=== PATIENT | female | born 1960 | race Caucasian/White ===

== ENCOUNTER 2018-01-04 01:30 | Emergency (ER) | payer OTHER ==
[~2018-01-04] VITALS: Ht 167.6 cm; Wt 100.0 kg
[2018-01-04 01:44] VITALS: BP 119/77; PULSE 74; RESP 18; TEMP 98.5; O2SAT 97
[2018-01-04] MEDS ORDERED: MOBI7.5T PO (01:51)
[2018-01-04] MEDS ORDERED: OFFICE MEDICATION PO (01:51)
[2018-01-04] MEDS ORDERED: ONDANSETRON ODT 4 MG TAB PO ONE (02:00)
--- NOTE | 2018-01-04 02:37 | PD ---
HPI Chief Complaint: Alcohol/Drug Intoxication Time Seen by Provider: 01:50 Travel History International Travel<30 days: No Contact w/Intl Traveler<30days: No Traveled to known affect area: No History of Present Illness HPI Patient states that she does not drink heavily on a regular basis. And today she had 5 jAEGERMEISTER shots. On apparently she was picked up by police because of local disturbance. Patient was brought to the emergency department for clearance. Patient herself denies any major complaints, except she does feel a little nauseous. Patient denies any aggravating factors or alleviating factors. No known drug allergy Past medical history consistent with hypothyroidism, hernia repair, right tibial fracture left ACL and carpal tunnel surgery. FOR[facility]LY [facility] Past Medical History Thyroid Disease: Yes Past Surgical History Abdominal Surgery: Yes (HERNIA REPAIR) Social History Alcohol Use: Yes (SOCIAL) Tobacco Use: No Substance Use: No Allergies-Medications (Allergen,Severity, Reaction): Coded Allergies: No Known Allergies (Unverified , 01/04/18) Reported Meds & Prescriptions Reported Meds & Active Scripts Active Reported Mobic (Meloxicam) 7.5 Mg Tab Unknown Dose PO DAILY Office Medication (Miscellaneous Medication) Misc 1 Tab PO DAILY Review of Systems General / Constitutional: No: Fever Eyes: No: Visual changes HENT: No: Headaches Cardiovascular: No: Chest Pain or Discomfort Respiratory: No: Shortness of Breath Gastrointestinal: Positive: Nausea, Vomiting (After drinking multiple shots of alcohol/liquor) Genitourinary: No: Dysuria Musculoskeletal: No: Pain Skin: No Rash Neurologic: No: Weakness Psychiatric: No: Depression Endocrine: No: Polydipsia Hematologic/Lymphatic: No: Easy Bruising Physical Exam Narrative GENERAL: SKIN: Warm and dry. HEAD: Atraumatic. Normocephalic. EYES: Pupils equal and round. No scleral icterus. No injection or drainage. ENT: No nasal bleeding or discharge. Mucous membranes pink and moist. NECK: Trachea midline. No JVD. CARDIOVASCULAR: Regular rate and rhythm. RESPIRATORY: No accessory muscle use. Clear to auscultation. Breath sounds equal bilaterally. GASTROINTESTINAL: Abdomen soft, non-tender, nondistended. MUSCULOSKELETAL: Extremities without clubbing, cyanosis, or edema. No obvious deformities. NEUROLOGICAL: Awake and alert. No obvious cranial nerve deficits. Motor grossly within normal limits. Five out of 5 muscle strength in the arms and legs. Normal speech. PSYCHIATRIC: Appropriate mood and affect; insight and judgment normal. Data Data Last Documented VS Vital Signs Date Time Temp Pulse Resp B/P (MAP) Pulse Ox O2 Delivery O2 Flow Rate FiO2 01/04/18 01:44 98.5 74 18 119/77 (91) 97 Orders Orders Blood Glucose (01/04/18 01:54) Ondansetron Odt (Zofran Odt) (01/04/18 02:00) MDM Medical Decision Making Medical Screen Exam Complete: Yes Emergency Medical Condition: Yes Medical Record Reviewed: Yes Differential Diagnosis Hypoglycemia versus EtOH intoxication Narrative Course After some observation, her vital signs are stable, glucose was 105, after receiving Zofran ODT patient stopped having any further emesis. And patient was able to tolerate p.o. prior to discharge.... Patient is released to police custody. Diagnosis Primary Impression: Alcohol intoxication with nausea Patient Instructions: Alcohol Intoxication (DC), General Instructions Disposition: [address] LAW ENFORCEMNT Condition: Stable Gary Blevins MD Jan 04, 2018 02:37
== END 2018-01-04 03:22 ==
LOC: NEDAMB 01:30
DX: F10.929 Alcohol use, unspecified with intoxication, unspecified (principal); R11.0 Nausea
CPT/HCPCS: 99283